=== PATIENT | female | born 1980 | race Caucasian/White ===

== ENCOUNTER 2017-07-18 07:30 | Inpatient (IN) | payer OTHER ==
--- NOTE | 2017-07-14 18:52 | PCM.LDHP ---
L&D History of Present Illness - General Date of Service: 07/21/17 Admit Problem/Dx: Admission Diagnosis/Problem Admission Diagnosis/Problem 07/14/17 18:41 39-6/7 week intrauterine , history of previous section 3 with desire for repeat section Source of Information: Patient History Limitations: Reports: No Limitations - History of Present Illness Introduction:: History of present illness: Patient is a 36-year-old 5 para 3013 white female is admitted for elective repeat section. She's had previous C- section 3. Her JAD is 07/22/2017 placing her at 39-6/7 weeks upon admission. The repeat section procedure, risks, benefits, alternatives of care are discussed in detail with the patient. She appears to understand, and wishes to proceed and has signed consent. 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 Certain last menstrual period started on . She is not using any control time conception. Her JAD heart was determined by an ultrasound done on 01/15/2017 at 13-1/7 weeks. Is supported by 2 other ultrasounds done on 03/05/2017 and 04/10/2017. Her deliveries have included the followin. Male born 11/03/2007 after 24 hours of labor -7 lbs. 8 oz. by section done for failure to progress -child's name is Michelle 2. Male infant born 06[birth year]2019repeat section 8 lbs. 0 oz.-Child's name is Víctor 3. 10/12/2013miscarriage 7 weeks gestation 4. Male born 07/12/2013 at 39 weeks gestational age7 lbs. 12 oz.repeat section child's name is: Ede Stubbs. course was relatively unremarkable. She had her T dap vaccination on 06/04/2017. She is group B strep negative. Each PDS score is 0 on 03/13/2017. She declined flu vaccination during . She declined genetic evaluation. Her first visit was at 13-1/7 weeks. Weight gain was from 188 pounds up to 210.2 pounds for a 22 pound weight gain. Fundal height growth was appropriate. Vital signs were normal throughout the care course. Laboratory testing shows blood to be O+ with a negative antibody screen. First hemoglobin was 12.0 g/dL and platelets are 256,000. Pap smear was negative. Rubella titer showed immunity. RPR is nonreactive. Urine culture was negative. Hepatitis B surface antigen and HIV assays were both negative as were the Chlamydia and gonorrhea assays. Second trimester hemoglobin was 10.8 g/dL and platelets were 203,000. One-hour GTT was 104. Group B strep screen was negative. Allergies: none Medications: 1. vitamins 1 daily 2. Iron tablets 325 mg ferrous sulfate by mouth daily Past medical history: 1. Gastritis October 2015 2. Anemia Past surgical history: 1. 3 2. Left oophorectomy with first section secondary to large ovarian cyst 3. EGD/colonoscopy for gastritis Family history: Mother is alive and well. Father's history is unknown. Patient has 4 sisters who are alive and well. Internal grandmother is secondary to a stroke. Maternal grandfather secondary to stroke. No bleeding, clotting or pounds noted in the family. No anesthesia problems noted in the family either. Social history: Patient is . She lives in [place]. 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 She does not use any significant amounts alcohol, drugs or tobacco. Her 's name is Mikhail. Review of systems: The patient has no concerns. She is doing well. Skin: Negative Respiratory: No infectious symptoms or shortness of breath Cardiovascular: No chest pain or exercise intolerance Breasts: Changes associated with , patient plans to nurse GI: Unremarkable : Changes associated Musculoskeletal: Some bilateral lower extremity edema noted in late Neurological: Negative Physical exam: General the patient is well-developed, well-nourished, pleasant female of stated age in no acute distress. Blood pressure on 07/10/2017 was 112/78. Her weight was 210 pounds with pregravid weight at 188. Her height is 5 feet 8. Her prepregnancy body mass index was 27.4. heart rate was 138. Skin is warm and dry without lesions. HEENT, neck and back within normal limits Lungs are clear with good breath sounds in all lung tejeda. Cardiovascular exam shows regular rate and rhythm without murmurs. Breast exam is deferred have been done at first visit and found to be normal. Abdomen is protuberant with fundal height of 38 cm. Baby is in a vertex presentation by Dheeraj maneuvers. Last cervical exam on 07/10/2017 showed dilation to 1 cm to 2 cm, 80% effaced, very soft, posterior position, -3 station. Extremities show 1+ pitting edema in bilateral lower extremities patient wearing support stockings Neurological exam grossly within normal limits - Related Data Allergies/Adverse Reactions: Allergies Allergy/AdvReac Type Severity Reaction Status Date / Time No Known Allergies Allergy Verified 10/30/15 21:24 Home Medications: Home Meds Sucralfate [Carafate] 1 gm PO TID PRN #15 tablet 10/28/15 [Rx] Omeprazole [Prilosec] 40 mg PO DAILY 10/30/15 [History] Ranitidine [Zantac] 150 mg PO BEDTIME 10/30/15 [History] Sucralfate [Carafate] 1 gm PO ACBED #20 tab 10/31/15 [Rx] Past Medical History - Past Health History Medical/Surgical History: Denies Medical/Surgical History - Infectious Disease History Infectious Disease History: Reports: Chicken Pox Social & Family History - Tobacco Use Smoking Status *Q: Never Smoker Second Hand Smoke Exposure: No - Alcohol Use Days Per Week of Alcohol Use: 0 - Recreational Drug Use Recreational Drug Use: No H&P Review of Systems - Review of Systems: Review Of Systems: See Below L&D Exam - Exam Exam: See Below - Vital Signs Weight: 76.204 kg Problem List Initiated/Reviewed/Updated: Yes Assessment/Plan Comment:: Assessment: 1. Term intrauterine at 39 and 6/7 weeks upon admission for elective repeat section 2. Group B strep screen negative 3. Risk factors for the include age of 36, history of section 3, miscarriage 1. 4. Patient declined genetic screening 5. Patient plans to nurse. Plan: 1. Uterine segment transverse section through Pfannenstiel skin incision under spinal block. The procedure, risks, benefits, possible complications and alternatives of care discussed in detail with the patient specifically discussed with her is increased risk for scarring and possible placental accreta. She appears to understand, has signed a consent and wishes to proceed. 2. DVT prophylaxis with SCDs 3. Ancef 2 g IV preop for infection prophylaxis 4. Routine preoperative evaluation with CBC and type and screen.
[2017-07-21] MEDS ORDERED: Sodium Chloride 0.9% 10 ML Syringe FLUSH PRN (02:49)
[2017-07-21] MEDS ORDERED: Metoclopramide 10 MG/2 ML SDV IVPUSH ONE (06:00)
[2017-07-21] MEDS ORDERED: Citric Acid/Sodium Citrate Solution 30 ML Cup PO ONE (06:00)
[2017-07-21] MEDS ORDERED: Bupivacaine 0.5% 30 ML SDV ONE (06:43)
[2017-07-21] MEDS: Lactated Ringers 1,000 ML IV SCH ×2 (06:45→07:09)
[2017-07-21] MEDS ORDERED: ceFAZolin 1 GM Vial ONE (06:56)
[2017-07-21] MEDS ORDERED: Phenylephrine 1% 10 MG/ML SDV ONE (06:56)
[2017-07-21] MEDS ORDERED: Oxytocin 10 Units/1 ML SDV ONE (06:56)
[2017-07-21] MEDS ORDERED: Morphine PF 10 MG/10 ML SDV ONE (06:57)
[2017-07-21] MEDS ORDERED: Ketorolac 30 MG/ML SDV ONE (06:57)
[2017-07-21] MEDS ORDERED: ceFAZolin 2 GM in Premix Bag 1 BAG IV ONE (07:00)
--- NOTE | 2017-07-21 07:09 | PCM.PREANE ---
Preanesthetic Assessment - Procedure Proposed Procedure: C Section - Anesthesia/Transfusion/Family Hx Anesthesia History: Prior Anesthesia Without Reaction Family History of Anesthesia Reaction: No Intubation History: Unknown - Review of Systems General: No Symptoms Pulmonary: No Symptoms Cardiovascular: No Symptoms Gastrointestinal: No Symptoms Neurological: No Symptoms Other: Reports: None - Physical Assessment NPO Status Date: 07/20/17 NPO Status Time: 22:30 Pulse: 67 O2 Sat by Pulse Oximetry: 97 Respiratory Rate: 15 Blood Pressure: 129/75 Temperature: 36.7 C Height: 1.73 m Weight: 76.204 kg ASA Class: 2 Mental Status: Alert & Oriented x3 Dentition: Reports: Normal Dentition Thyro-Mental Finger Breadths: 3 Mouth Opening Finger Breadths: 3 ROM/Head Extension: Full Lungs: Clear to Auscultation, Normal Respiratory Effort Cardiovascular: Regular Rate, Regular Rhythm - Lab Values: Laboratory Last Values WBC 7.29 K/mm3 (3.98-10.04) 07/21/17 06:00 RBC 3.60 M/mm3 (3.98-5.22) L 07/21/17 06:00 Hgb 10.6 gm/L (11.2-15.7) L 07/21/17 06:00 Hct 31.1 % (34.1-44.9) L 07/21/17 06:00 MCV 86.4 fl (79.4-94.8) 07/21/17 06:00 MCH 29.4 pg (25.6-32.2) 07/21/17 06:00 MCHC 34.1 g/dl (32.2-35.5) 07/21/17 06:00 RDW Std Deviation 39.5 fL (36.4-46.3) 07/21/17 06:00 Plt Count 216 K/mm3 (182-369) 07/21/17 06:00 MPV 9.9 fl (9.4-12.3) 07/21/17 06:00 Neut % (Auto) 72.5 % (34.0-71.1) H 07/21/17 06:00 Lymph % (Auto) 17.7 % (19.3-51.7) L 07/21/17 06:00 [place] % (Auto) 8.4 % (4.7-12.5) 07/21/17 06:00 Eos % (Auto) 0.8 (0.7-5.8) 07/21/17 06:00 Baso % (Auto) 0.5 % (0.1-1.2) 07/21/17 06:00 Neut # (Auto) 5.28 K/mm3 (1.56-6.13) 07/21/17 06:00 Lymph # (Auto) 1.29 K/mm3 (1.18-3.74) 07/21/17 06:00 [place] # (Auto) 0.61 K/mm3 (0.24-0.36) H 07/21/17 06:00 Eos # (Auto) 0.06 K/mm3 (0.04-0.36) 07/21/17 06:00 Baso # (Auto) 0.04 K/mm3 (0.01-0.08) 07/21/17 06:00 - Allergies Allergies/Adverse Reactions: Allergies Allergy/AdvReac Type Severity Reaction Status Date / Time No Known Allergies Allergy Verified 10/30/15 21:24 - Anesthesia Plan Pre-Op Medication Ordered: Antacids - Acknowledgements Anesthesia Type Planned: Spinal Pt an Appropriate Candidate for the Planned Anesthesia: Yes Alternatives and Risks of Anesthesia Discussed w Pt/Guardian: Yes Pt/Guardian Understands and Agrees with Anesthesia Plan: Yes PreAnesthesia Questionnaire - Past Health History Medical/Surgical History: Denies Medical/Surgical History Gastrointestinal History: Reports: GERD RN CLINICAL DOCUMENTATION History: Reports: Hematologic History: Reports: Anemia - Infectious Disease History Infectious Disease History: Reports: Chicken Pox - SUBSTANCE USE Smoking Status *Q: Never Smoker Second Hand Smoke Exposure: No Days Per Week of Alcohol Use: 0 Recreational Drug Use History: No - HOME MEDS Home Medications: Home Meds Sucralfate [Carafate] 1 gm PO TID PRN #15 tablet 10/28/15 [Rx] Omeprazole [Prilosec] 40 mg PO DAILY 10/30/15 [History] Ranitidine [Zantac] 150 mg PO BEDTIME 10/30/15 [History] Sucralfate [Carafate] 1 gm PO ACBED #20 tab 10/31/15 [Rx] - CURRENT (IN HOUSE) MEDS Current Meds: Current Medications Cefazolin Sodium/Dextrose 2 gm (/ Premix) 50 mls @ 100 mls/hr IV ONETIME ONE Stop: 07/21/17 07:29 Lactated Ringer's (Ringers, Lactated) 1,000 mls @ 125 mls/hr IV ASDIRECTED [facility] Last Admin: 07/21/17 06:45 Dose: 125 mls/hr Oxytocin/Lactated Ringer's (Pitocin In Lr 10 Units/1,000 Ml) 10 unit in 1,000 mls @ 100 mls/hr IV ASDIRECTED [facility] Sodium Chloride (Saline Flush) 10 ml FLUSH ASDIRECTED PRN PRN Reason: Keep Vein Open Discontinued Medications Bupivacaine HCl (Marcaine 0.5%) Confirm Administered Dose 30 ml .ROUTE .STK-MED ONE Stop: 07/21/17 06:44 Cefazolin Sodium (Ancef) Confirm Administered Dose 2 gm .ROUTE .STK-MED ONE Stop: 07/21/17 06:57 Citric Acid/Sodium Citrate (Bicitra Solution) 30 ml PO ONETIME ONE Stop: 07/21/17 06:01 Ketorolac Tromethamine (Toradol) Confirm Administered Dose 30 mg .ROUTE .STK- MED ONE Stop: 07/21/17 06:58 Metoclopramide HCl (Reglan) 10 mg IVPUSH ONETIME ONE Stop: 07/21/17 06:01 Morphine Sulfate (Duramorph Pf) Confirm Administered Dose 10 mg .ROUTE .STK-MED ONE Stop: 07/21/17 06:58 Oxytocin (Pitocin) Confirm Administered Dose 20 unit .ROUTE .STK-MED ONE Stop: 07/21/17 06:57 Phenylephrine HCl (Chuy-Synephrine) Confirm Administered Dose 10 mg .ROUTE .STK- MED ONE Stop: 07/21/17 06:57
[2017-07-21] MEDS ORDERED: Oxytocin/Lactated Ringers 10 UNIT/1,000 ML BAG IV SCH (08:00)
[2017-07-21] MEDS ORDERED: Lactated Ringers 1,000 ML ONE ×3 (08:38→15:08)
[2017-07-21] MEDS ORDERED: diphenhydrAMINE 50 MG/ML SDV IVPUSH PRN ×2 (08:40→10:19)
[2017-07-21] MEDS ORDERED: Ondansetron 4 MG/2 ML SDV IVPUSH PRN (08:40)
--- NOTE | 2017-07-21 08:42 | PCM.POSTAN ---
POST ANESTHESIA ASSESSMENT - MENTAL STATUS Mental Status: Alert, Oriented - VITAL SIGNS Pulse Rate: 65 SaO2: 98 Resp Rate: 9 Blood Pressure: 108/63 Temperature: 36.6 C - RESPIRATORY Respiratory Status: Respiratory Rate WNL, Airway Patent, O2 Saturation Stable - CARDIOVASCULAR CV Status: Pulse Rate WNL, Blood Pressure Stable - GASTROINTESTINAL GI Status: No Symptoms - PAIN Pain Score: 0
--- NOTE | 2017-07-21 08:45 | PCM.OPNOTE ---
- General Post-Op/Procedure Note Date of Surgery/Procedure: 07/21/17 Operative Procedure(s): Repeat lower uterine segment transverse section through Pfannenstiel skin incision Findings: Right ovary surgically absent. Left ovary and fallopian tube normal. Uterus is normal. Lower uterine segment very thinned at no more than 2-3 mm. Moderate scarring noted. Baby in a vertex presentation. Amniotic fluid clear. Cervix is 2 cm dilated. Baby was a male , Apgars 9 and 9, born at 0803 hrs., pounds 14 ounces. Pre Op Diagnosis: 39 week intrauterine patency, history of previous section with desire for repeat section. Post-Op Diagnosis: Same with delivery of a viable 7 lbs. 14 oz. male infant with Apgars of 9 and 9 at 0803 hrs. on 07/21/2017. Anesthesia Technique: Spinal Other Anesthesia Type: Marcaine 0.5%20 mL local Primary Surgeon: Richi Saldaña Secondary Surgeon: Satish Alfredo Anesthesia Provider: Leny Hernández Reason Steel Rigger Was Necessary: Retraction Role of Steel Rigger: Retraction Fluid Replacement, Intraop: 2,500 (Crystalloid) Output, Urine Amount: 275 EBL in mLs: 300 Drain/Tube Comments:: Indwelling bladder catheter Complications: None Condition: Good Free Text/Narrative:: Surgery duration: 24 minutes Procedure: Patient was transferred to the room and placed in a sitting position. Spinal anesthesia was administered. After confirmation of adequate anesthesia patient was placed in a supine position with a wedge under her right side to facilitate left lateral positioning. The patient was prepped and draped in usual fashion after Jackman catheter was already placed . The anesthetic was checked and found to be adequate. 20 mL of Marcaine 0.5% was injected locally in the Pfannenstiel incision site. The Pfannenstiel skin incision was then made through the area of the old Pfannenstiel scar and was carried down to skin, subcutaneous and fascial layers. The fascia was then undermined superiorly and inferiorly to allow for adequate operating room the recti muscles midline and preperitoneal fat was bluntly dissected. Peritoneal cavity was entered longitudinally. The vesicouterine peritoneum was then incised transversely and bladder flap was developed. Myometrium was incised transversely to the level of the amniotic sac. The myometrium was found be very thin at no more than 2-3 mm. This incision was extended bilaterally in a blunt fashion. The amniotic sac was then ruptured resulting clear amniotic fluid. A hand is placed in the low uterine segment and the baby's head was brought forth through the incision. The baby was completely delivered using fundal pressure in a routine fashion. The nose and mouth were bulb suctioned. Baby's cord was clamped x2 cut and baby was handed off to attending motor tester Dr Barker. Placenta was expressed after cord blood was obtained. Uterus was then exteriorized to allow for easier closure. The cervix was assessed and found to be dilated adequately to allow egress of blood. The uterus was closed in 2 layers. The first layer a running locked suture of 0 Monocryl, the second layer a running locked vertical mattress suture of 0 Monocryl. Acrdwd-qu-sdues suture was placed at the left incision to control 1 bleeder. Hemostasis confirmed at this time. Sponge instrument needle counts are correct. The uterus was returned to the abdominal cavity and lateral gutters were cleared of blood. Once again sponge needle counts are correct. The anterior abdominal wall was closed with a #1 PDS suture from angle to angle. The subcutaneous area was found to be free of any bleeders. interrupted sutures of 3-0 Monocryl were used to reapproximate the subcutaneous layer.Skin was closed with a running subcuticular stitch of 3-0 Monocryl in a vertical mattress suture fashion using a Kel needle. Prineo mesh/glue was then applied to further approximate the incision. It should be noted that patient received 2 g of Ancef preoperatively for infection prophylaxis and had Pitocin infused after delivery of the placenta to facilitate uterine contraction. She also had sequential compression stockings in place for DVT prophylaxis. Patient was discharged from the operating room in satisfactory condition.
[2017-07-21] MEDS ORDERED: Prenatal Multivitamin with Calcium/Folic Acid/Iron Tab PO SCH (09:00)
[2017-07-21] MEDS ORDERED: FLU Vacc QS 2017-18 (6mos UP)/PF 60 MCG/0.5 ML Syringe IM ONE (09:00)
[2017-07-21] MEDS ORDERED: Docusate Sodium 100 MG Cap PO PRN (10:19)
[2017-07-21] MEDS ORDERED: Naloxone 0.4 MG/ML SDV IVPUSH PRN (10:19)
[2017-07-21] MEDS ORDERED: Lanolin 100% Cream 7 GM Tube TOP PRN (10:19)
[2017-07-21] MEDS ORDERED: Dextrose 5%-Lactated Ringers 1,000 ML IV SCH (10:19)
[2017-07-21] MEDS ORDERED: ePHEDrine 50 MG/ML SDV IVPUSH PRN (10:19)
[2017-07-21] MEDS ORDERED: Ondansetron 4 MG/2 ML SDV IV PRN (10:19)
[2017-07-21] MEDS: Simethicone 80 MG Tab.Chew PO SCH ×3 (11:32→19:32)
[2017-07-21] MEDS ORDERED: Sodium Chloride 0.9% 1,000 ML ONE (15:21)
[2017-07-21] MEDS ORDERED: Sodium Chloride 0.9% 1,000 ML IV ONE (15:21)
[2017-07-21] MEDS: Ibuprofen 800 MG Tab PO SCH ×2 (15:24→19:33)
[2017-07-21] MEDS ORDERED: Lactated Ringers 1,000 ML IV SCH (15:30)
[2017-07-22] MEDS: Acetaminophen/oxyCODONE 325-5 MG Tab PO PRN ×5 (02:12→21:13)
[2017-07-22] MEDS: Simethicone 80 MG Tab.Chew PO SCH ×5 (02:12→21:14)
[2017-07-22] MEDS: Ibuprofen 800 MG Tab PO SCH ×4 (04:18→21:14)
--- NOTE | 2017-07-22 09:34 | PCM48HPAN ---
Post Anesthesia Note - EVALUATION WITHIN 48HRS OF ANESTHETIC Vital Signs in Normal Range: Yes Patient Participated in Evaluation: Yes Respiratory Function Stable: Yes Airway Patent: Yes Cardiovascular Function Stable: Yes Hydration Status Stable: Yes Pain Control Satisfactory: Yes Nausea and Vomiting Control Satisfactory: Yes Mental Status Recovered: Yes - COMMENTS/OBSERVATIONS Free Text/Narrative:: Shira is up walking around. Denies any headache. Denies back pain. Denies numbness and tingling in her lower extremities. She states the baby is doing well. No further questions at this time. No complications noted.
--- NOTE | 2017-07-22 11:40 | PCM.SN ---
- Free Text/Narrative Note: Yaima is doing well today. She has minimal pain. She is ambulatory well, nursing well. Has minimal lochia. She has showered. Vital signs stable. Patient is afebrile. Lungs are clear with good breath sounds in all lung tejeda. Heart cardiovascular exam shows regular rate and rhythm. Abdomen soft, nontender, incision appears to be dry, intact and with mesh placement intact over it. Legs are nontender. Hemoglobin was 8.5. Platelets are normal. Assessment/plan: Postoperative day onedoing well. Patient is anemic but is asymptomatic and doing well. keep until tomorrow and possibly discharge on iron and vitamins.
[2017-07-23] MEDS: Acetaminophen/oxyCODONE 325-5 MG Tab PO PRN (01:50)
[2017-07-23 04:11] VITALS: BP 102/55
[2017-07-23] MEDS: Ibuprofen 800 MG Tab PO SCH (05:48)
--- NOTE | 2017-07-23 08:20 | PCM.DCSUM1 ---
Discharge Summary - Hospital Course Free Text/Narrative:: Yaima is a 36-year-old 5 para 4014 white female who was admitted on at 39-6/7 weeks gestational age with an JAD of 07/22/2017 for an elective repeat section. She had previous section 3 and desired repeat. The procedure, risks, benefits, alternatives of care discussed details patient. She appeared to understand, wish to proceed and was taken to surgery. Please see admission history and physical and operative report for details. She delivered a viable, 7 lbs. 14 oz. male with Apgars of 9 and 9 at 0803 hrs. on 07/21/2017. Baby was born by repeat section. Findings at the time of surgery included the following: Right ovary surgically absent. Left ovary and fallopian tube normal. Uterus is normal. Lower uterine segment very thinned at no more than 2-3 mm. Moderate scarring noted. Baby in a vertex presentation. Amniotic fluid clear. Cervix is 2 cm dilated. Postoperatively pain was controlled with Duramorph and ibuprofen initially followed by ibuprofen and Percocet as needed. Patient had good bowel, bladder laboratory recovery. She is nursing without problems. Follow-up CBC showed a hemoglobin of 8.5 which is down from a little over 10 preoperatively. Well clinically however and does not feel any further intervention other than iron therapy is warranted. Is desiring discharge. Discharge instructions are given. - Discharge Data Discharge Date: 07/23/17 Discharge Disposition: Home, Self-Care 01 Condition: Good - Patient Summary/Data Operative Procedure(s) Performed: Repeat lower uterine segment transverse section through Pfannenstiel skin incision - Patient Instructions Diet: Regular Diet as Tolerated (Nursing diet was increased calories and calcium is recommended) Activity: As Tolerated (No lifting greater than 15 pounds or driving a car 1 week. No intercourse or tampons until seen back in clinic.) Driving: Do Not Drive Showering/Bathing: May Shower Wound/Incision Care: Keep Operative Site/Wound Site Clean and Dry Notify Provider of: Fever, Increased Pain, Swelling and Redness, Drainage, Nausea and/or Vomiting - Discharge Plan Home Medications: Home Meds Ferrous Sulfate [Iron] 325 mg PO DAILY 07/21/17 [History] PNV95/Ferrous Fumarate/FA [ Tablet] 1 each PO DAILY 07/21/17 [History] Acetaminophen/oxyCODONE [Percocet 325-5 MG] 2 tab PO Q4H PRN #20 tablet [Rx] Ibuprofen [IJD: Ibuprofen] 600 mg PO Q4H PRN #30 tablet 07/23/17 [Rx] Referrals: Richi Saldaña MD [Physician] - (Return to clinic-Dr. Saldaña [facility] in 2 weeks.) - Discharge Summary/Plan Comment DC Time >30 min.: No Discharge Summary/Plan Comment: Discharge instructions: 1. Discharge home 2. Diet, activity and follow-up discussed with patient. Recommend nursing diet with increased calories and calcium. 3. Precautions given concern increased pain, bleeding, temperature, signs/ symptoms of DVT/PE. 4. Medications per home medication was printed, discussed with and given to the patient. [facility] Diagnosis: 1. Term at 39-6/7 weeks-delivered 2. History of previous section with repeat section Condition: Good - Patient Data Vitals - Most Recent: Last Vital Signs Temp 36.4 C 07/23/17 04:09 Pulse 61 07/22/17 20:05 Resp 16 07/23/17 04:09 BP 102/55 L 07/23/17 04:09 Pulse Ox 97 07/23/17 04:09 Weight - Most Recent: 94.801 kg I&O - Last 24 hours: Intake & Output 07/22/17 07/23/17 07/23/17 22:59 06:59 14:59 Intake Total 120 Balance 120 Med Orders - Current: Current Medications Diphenhydramine HCl (Benadryl) 25 mg IVPUSH Q6H PRN PRN Reason: Itching or Nausea Docusate Sodium (Colace) 100 mg PO Q12H PRN PRN Reason: Constipation Emollient Ointment (Lansinoh Hpa) 0 gm TOP ASDIRECTED PRN PRN Reason: Sore Nipples Ephedrine Sulfate (Ephedrine Sulfate) 5 mg IVPUSH SEECOMMENT PRN PRN Reason: Other Lactated Ringer's (Ringers, Lactated) 1,000 mls @ 100 mls/hr IV ASDIRECTED YARY Last Admin: 07/21/17 16:55 Dose: 100 mls/hr Ibuprofen (Motrin) 800 mg PO Q8H [facility] Last Admin: 07/23/17 05:48 Dose: 800 mg Naloxone HCl (Narcan) 0.1 mg IVPUSH SEECOMMENT PRN PRN Reason: Respiratory Depression Ondansetron HCl (Zofran) 4 mg IV Q4H PRN PRN Reason: Nausea/Vomiting Last Admin: 07/21/17 15:14 Dose: 4 mg Oxycodone/Acetaminophen (Percocet 325-5 Mg) 2 tab PO Q4H PRN PRN Reason: Pain (moderate 4-6) Last Admin: 07/23/17 01:50 Dose: 2 tab Simethicone (Simethicone) 80 mg PO PCBED [facility] Last Admin: 07/22/17 21:14 Dose: 80 mg Discontinued Medications Bupivacaine HCl (Marcaine 0.5%) Confirm Administered Dose 30 ml .ROUTE .STK-MED ONE Stop: 07/21/17 06:44 Last Admin: 07/21/17 08:00 Dose: 20 ml Cefazolin Sodium (Ancef) Confirm Administered Dose 2 gm .ROUTE .STK-MED ONE Stop: 07/21/17 06:57 Citric Acid/Sodium Citrate (Bicitra Solution) 30 ml PO ONETIME ONE Stop: 07/21/17 06:01 Last Admin: 07/21/17 07:14 Dose: 30 ml Diphenhydramine HCl (Benadryl) 25 mg IVPUSH Q6H PRN PRN Reason: Pruritis Stop: 07/21/17 11:00 Cefazolin Sodium/Dextrose 2 gm (/ Premix) 50 mls @ 100 mls/hr IV ONETIME ONE Stop: 07/21/17 07:29 Last Admin: 07/21/17 11:34 Dose: Not Given Lactated Ringer's (Ringers, Lactated) 1,000 mls [facility] 125 [facility] Admin: 07/21/17 07:09 Dose: 125 mls/hr Oxytocin/Lactated Ringer's (Pitocin In Lr 10 Units/1,000 Ml) 10 unit in 1,000 mls @ 100 mls[facility] Lactated Ringer's (Ringers, Lactated) Confirm Administered Dose 1,000 mls @ as directed .ROUTE .[facility] ONE Stop: 07/21/17 08:39 Lactated Ringer's (Ringers, Lactated) Confirm Administered Dose 1,000 mls @ as directed .ROUTE .[facility] ONE Stop: 07/21/17 08:39 Dextrose/Lactated Ringer's (Dextrose 5%-Lactated Ringers) 1,000 mls @ 125 mls/ hr IV ASDIRECTED YARY Stop: 07/21/17 18:18 Last Admin: 07/21/17 12:00 Dose: 125 mls/hr Lactated Ringer's (Ringers, Lactated) Confirm Administered Dose 1,000 mls @ as directed .ROUTE .[facility] ONE Stop: 07/21/17 15:09 Last Admin: 07/21/17 15:21 Dose: Not Given Sodium Chloride (Normal Saline) 1,000 mls @ 999 mls/hr IV ONETIME ONE Stop: 07/21/17 16:21 Sodium Chloride (Normal Saline) Confirm Administered Dose 1,000 mls @ as directed .ROUTE .[facility] ONE Stop: 07/21/17 15:22 Influenza Virus Vaccine (Pharmacy To Dose - Influenza Vaccine) 1 each IM ONETIME ONE Stop: 07/21/17 07:26 Last Admin: 07/21/17 11:33 Dose: Not Given Influenza Virus Vaccine (Flulaval Quad 2307-5921) 60 mcg IM .ONCE ONE Stop: 07/21/17 09:01 Ketorolac Tromethamine (Toradol) Confirm Administered Dose 30 mg .ROUTE .[facility] ONE Stop: 07/21/17 06:58 Metoclopramide HCl (Reglan) 10 mg IVPUSH ONETIME ONE Stop: 07/21/17 06:01 Last Admin: 07/21/17 07:11 Dose: 10 mg Morphine Sulfate (Duramorph Pf) Confirm Administered Dose 10 mg .ROUTE .[facility] ONE Stop: 07/21/17 06:58 Ondansetron HCl (Zofran) 4 mg IVPUSH ONETIME PRN PRN Reason: Nausea/Vomiting Stop: 07/21/17 11:00 Oxytocin (Pitocin) Confirm Administered Dose 20 unit .ROUTE .[facility] ONE Stop: 07/21/17 06:57 Phenylephrine HCl (Chuy-Synephrine) Confirm Administered Dose 10 mg .ROUTE .STK- MED ONE Stop: 07/21/17 06:57 Prenat Multivit/[place]/Iron/Folic Ac ( Plus Iron) 1 each PO DAILY YARY Last Admin: 07/21/17 11:33 Dose: Not Given Sodium Chloride (Saline Flush) 10 ml FLUSH ASDIRECTED PRN PRN Reason: Keep Vein Open *Q Meaningful Use (DIS) - VTE *Q VTE Criteria *Q: - Stroke *Q Stroke Criteria *Q: - AMI *Q AMI Criteria *Q:
[2017-07-23] MEDS: Simethicone 80 MG Tab.Chew PO SCH (09:57)
[2017-07-23] MEDS ORDERED: FLU Vacc QS 2017-18 (6mos UP)/PF 60 MCG/0.5 ML Syringe IM ONE (11:30)
== END 2017-07-23 12:02 | disposition home or self-care (01) | DRG 766 ==
LOC: JD.OB 07-21 05:30
PROVIDERS: ADMIT Obstetrics & Gynecology; ATTEND Obstetrics & Gynecology
PROC: 10D00Z1 Extraction of Products of Conception, Low, Open Approach (ICD-10-PCS; principal; 2017-07-21)
DX: O34.211 Maternal care for low transverse scar from previous cesarean delivery (principal); N85.8 Other specified noninflammatory disorders of uterus; Z3A.40 40 weeks gestation of pregnancy; Z37.0 Single live birth; O99.02 Anemia complicating childbirth; Z79.899 Other long term (current) drug therapy
CPT/HCPCS: 01967; 36415; 85025; 86850; 86900; 86901; 94762; A9270-GY; J0690; J1885; J2270; J2370; J2405; J2590; J2765; J7042; J7120

== ENCOUNTER 2022-07-10 06:00 | Inpatient (IN) | payer OTHER ==
[2022-07-10] MEDS ORDERED: Lactated Ringers 1,000 ML IV ONE (06:15)
[2022-07-10] MEDS ORDERED: Citric Acid/Sodium Citrate Solution 30 ML Cup PO ONE (07:35)
[2022-07-10] MEDS ORDERED: Metoclopramide 10 MG/2 ML SDV IV ONE (07:35)
[2022-07-10] MEDS ORDERED: Oxytocin/Lactated Ringers 10 UNIT/1,000 ML BAG IV ONE (09:10)
[2022-07-10] MEDS ORDERED: Dextrose 5%-Lactated Ringers 1,000 ML IV ONE (13:10)
[2022-07-10] MEDS ORDERED: Ibuprofen 800 MG Tab PO ONE (15:00)
[2022-07-11] MEDS ORDERED: Ibuprofen 800 MG Tab PO ONE (07:25)
[2022-07-11] MEDS ORDERED: Acetaminophen/oxyCODONE 325-5 MG Tab PO ONE ×2 (10:52→15:00)
[2022-07-12] MEDS ORDERED: Acetaminophen/oxyCODONE 325-5 MG Tab PO ONE ×2 (02:55→08:10)
[2022-07-12] MEDS ORDERED: Ibuprofen 800 MG Tab PO ONE (06:50)
== END 2022-07-12 10:45 | disposition home or self-care (01) | DRG 788 ==
LOC: JD.SDS 06:00 → JD.ZCENSUS 06:01
PROVIDERS: ADMIT Obstetrics & Gynecology; ATTEND Obstetrics & Gynecology
PROC: 10D00Z1 Extraction of Products of Conception, Low, Open Approach (ICD-10-PCS; principal; 2022-07-10)
DX: O34.211 Maternal care for low transverse scar from previous cesarean delivery (principal); Z37.0 Single live birth; O99.02 Anemia complicating childbirth; D64.9 Anemia, unspecified; Z3A.39 39 weeks gestation of pregnancy
CPT/HCPCS: 01961; 36415; 59025; 85025; 86592; 86850; 86900; 86901; A9270-GY; J2590; J2765; J7120; J7121